=== PATIENT | female | born 1995 | race Two or more races ===

== ENCOUNTER 2016-09-29 10:32 | Emergency (ER) | payer OTHER ==
[2016-09-29 10:39] VITALS: BP 122/84; PULSE 76; TEMP 98.9; BMI 23.8
[2016-09-29] MEDS ORDERED: IBUPROFEN 600 MG TABLET (FP) PO ONE ×2 (11:12→11:14)
--- NOTE | 2016-09-29 11:29 | PDOC ---
History of Present Illness - General Chief Complaint: Sore Throat Stated Complaint: THROAT/TONSIL PAIN Time Seen by Provider: 09/29/16 11:00 History Source: Patient Exam Limitations: No Limitations - History of Present Illness Initial Comments: 09/29/16 11:26 20 yr female with c/o sore throat for 3 days and "bad taste" in her mouth. no fever no chills, no diff swallowing. no medical history or allergies. Occurred: reports: other (3 days) Severity: Yes: mild Past History - Past Medical History Allergies/Adverse Reactions: Allergies Allergy/AdvReac Type Severity Reaction Status Date / Time amoxicillin trihydrate Allergy Rash Verified 09/29/16 10:39 [From Augmentin] potassium clavulanate Allergy Rash Verified 09/29/16 10:39 [From Augmentin] Home Medications: Ambulatory Orders No Home Medications 0 dose .ROUTE UTDICT 11/08/11 Anemia: No - Immunization History Immunization Up to Date: Yes - Psycho/Social/Smoking Cessation Hx Anxiety: No Suicidal Ideation: No Smoking Status: No Smoking History: Never smoked Number of Cigarettes Smoked Daily: 0 Information on smoking cessation initiated: No *Physical Exam - Vital Signs Last Vital Signs Temp Pulse Resp BP Pulse Ox 98.9 F 76 18 122/84 99 09/29/16 10:36 09/29/16 10:36 09/29/16 10:36 09/29/16 10:36 09/29/16 10:36 - Physical Exam General Appearance: Yes: Nourished, Appropriately Dressed HEENT: positive: EOMI, GALDINO, TMs Normal, Tonsillar Exudate (right side, possible tonsilar stone), Tonsillar Erythema Neck: positive: Supple. negative: Lymphadenopathy (R), Lymphadenopathy (L) Respiratory/Chest: positive: Lungs Clear, Normal Breath Sounds Cardiovascular: positive: Regular Rhythm, Regular Rate Gastrointestinal/Abdominal: positive: Normal Bowel Sounds, Soft Musculoskeletal: positive: Normal Inspection Extremity: positive: Normal Capillary Refill, Normal Inspection, Normal Range of Motion Integumentary: positive: Normal Color, Dry, Warm Neurologic: positive: Fully Oriented, Alert, Normal Mood/Affect, Normal Response , Motor Strength 5/5 ED Treatment Course - Medications Given in the ED: ED Medications Discontinued Medications Generic Name Dose Route Start Last Admin Trade Name Freq PRN Reason Stop Dose Admin Ibuprofen 600 mg 09/29/16 11:14 09/29/16 11:20 Motrin - PO 09/29/16 11:15 600 mg ONCE ONE Administration Medical Decision Making - Medical Decision Making 09/29/16 11:29 cc: sore throat, right tonsil stone will check for strep motrin for pain 09/29/16 12:01 *DC/Admit/Observation/Transfer Diagnosis at time of Disposition: Tonsil stone - Discharge Dispostion Disposition: HOME Condition at time of disposition: Good - Referrals Referrals: Rafi Ferrell MD [Staff Physician] - - Patient Instructions Additional Instructions: gargle with warm salt water 4-5 times a day sour lemon candies frequently follow with the ENT doctor for follow up, call today to make appointment
== END 2016-09-29 12:15 | disposition home or self-care (01) ==
LOC: JERFT 10:32
DX: J35.8 Other chronic diseases of tonsils and adenoids (principal)
CPT/HCPCS: 87070; 87430; 99281-25

== ENCOUNTER 2017-09-01 16:23 | Emergency (ER) | payer OTHER ==
[2017-09-01 16:43] VITALS: BP 130/66; PULSE 68; TEMP 98; BMI 26.5
--- NOTE | 2017-09-01 16:44 | PDOC ---
Rapid Medical Evaluation Chief Complaint: Injury Time Seen by Provider: 09/01/17 16:40 Medical Evaluation: Allergies Allergy/AdvReac Type Severity Reaction Status Date / Time amoxicillin trihydrate Allergy Rash Verified 09/01/17 16:39 [From Augmentin] potassium clavulanate Allergy Rash Verified 09/01/17 16:39 [From Augmentin] 09/01/17 16:40 Pt. presents with R ankle pain. States she was walking at work when she twisted her ankle. Finished her shift. LMP 08/19/17 Exam: Mild swelling to the top of the R foot. Pain with movement. Orders: x-ray Pt. to proceed to FT for further evaluation
--- NOTE | 2017-09-01 17:24 | PDOC ---
History of Present Illness - General Chief Complaint: Injury Stated Complaint: ANKLE INJURY Time Seen by Provider: 09/01/17 16:40 History Source: Patient Exam Limitations: No Limitations - History of Present Illness Initial Comments: 09/01/17 17:16 21-year-old woman without significant past medical history presents emergency Department with right ankle pain status post inversion injury this morning while walking. Patient was walking to work wearing platform shoes when she stepped on uneven pavement causing her foot to invert. Patient was immediately ambulatory after injury but as the day progressed the pain got worse and the swelling increased. Patient has not taken anything for pain at this time. Past History - Past Medical History Allergies/Adverse Reactions: Allergies Allergy/AdvReac Type Severity Reaction Status Date / Time amoxicillin trihydrate Allergy Rash Verified 09/01/17 16:39 [From Augmentin] potassium clavulanate Allergy Rash Verified 09/01/17 16:39 [From Augmentin] Home Medications: Ambulatory Orders No Home Medications 0 dose .ROUTE UTDICT 11/08/11 Anemia: No COPD: No DVT: No - Immunization History Immunization Up to Date: Yes - Suicide/Smoking/Psychosocial Hx Smoking Status: No Smoking History: Never smoked Have you smoked in the past 12 months: No Number of Cigarettes Smoked Daily: 0 Information on smoking cessation initiated: No Hx Alcohol Use: No Drug/Substance Use Hx: No Substance Use Type: None Review of Systems - Review of Systems Able to Perform ROS?: Yes Is the patient limited Mosotho proficient: No Constitutional: No: Symptoms Reported HEENTM: No: Symptoms Reported Respiratory: No: Symptoms reported Cardiac (ROS): No: Symptoms Reported ABD/GI: No: Symptoms Reported : No: Symptoms Reported Musculoskeletal: Yes: See HPI Integumentary: No: Symptoms Reported Neurological: No: Symptoms reported *Physical Exam - Vital Signs Last Vital Signs Temp Pulse Resp BP Pulse Ox 98.0 F 68 18 130/66 100 09/01/17 16:39 09/01/17 16:39 09/01/17 16:39 09/01/17 16:39 09/01/17 16:39 - Physical Exam General Appearance: Yes: Appropriately Dressed. No: Apparent Distress Vascular Pulses: Dorsalis-Pedis (R): 2+, Doralis-Pedis (L): 2+ Musculoskeletal: positive: Normal Inspection Extremity: positive: Normal Capillary Refill, Normal Inspection, Normal Range of Motion, Tender (to Palpation over the lateral malleolus. No bony deformity or crepitus present) Integumentary: positive: Normal Color, Dry, Warm Medical Decision Making - Medical Decision Making 09/01/17 17:18 A/P: 21-year-old woman with right ankle pain status post inversion injury this morning at 7:30 AM Full flexion and extension of right ankle against resistance without difficulty 2+ DP pulses bilaterally Tender to palpation over the right lateral malleolus X-rays, reassess X-rays read by me: No fracture or dislocation is present in the foot or ankle. Akbar wrap, crutches discharge home with referral orthopedic surgeon if symptoms are not improved within the next 7 days. *DC/Admit/Observation/Transfer Diagnosis at time of Disposition: Right ankle sprain Qualifiers: Encounter type: initial encounter Involved ligament of ankle: unspecified ligament Qualified Code(s): S93.401A - Sprain of unspecified ligament of right ankle, initial encounter - Discharge Dispostion Disposition: HOME Condition at time of disposition: Stable Decision to Admit order: No - Referrals Referrals: Darwin Higginbotham MD [Primary Care Provider] - Christophe Reyez MD [Staff Physician] - - Patient Instructions Printed Discharge Instructions: DI for Ankle Sprain Additional Instructions: Take Tylenol or Motrin as needed for pain. Follow manufacturers instructions for appropriate dosage. Try not to walk or bear weight on your left ankle as much as possible for the next 3 days. Apply ice for 20 minutes and removed for at least 20 minutes before reapplying the ice. Keep Akbar wrap on your ankle as much as possible to help decrease some of the swelling control pain. Whenever possible keep her foot elevated to decrease swelling to your ankle. You've been given the number for an orthopedist. If symptoms do not resolve within the next 7 days call the orthopedist for further evaluation. Return to emergency department for discoloration of the foot, numbness or tingling to the foot, worsening pain, or any other concerns. Thank you very much for choosing us to provide your emergent healthcare needs. - Post Discharge Activity Forms/Work/School Notes: Back to Work
== END 2017-09-01 17:31 | disposition home or self-care (01) ==
LOC: JERFT 16:23
DX: S93.401A Sprain of unspecified ligament of right ankle, initial encounter (principal); X50.1XXA Overexertion from prolonged static or awkward postures, initial encounter; Y93.01 Activity, walking, marching and hiking; Y92.480 Sidewalk as the place of occurrence of the external cause; Y99.8 Other external cause status
CPT/HCPCS: 73610-TC-RT-FY; 73630-TC-RT-FY; 99281-25

== ENCOUNTER 2018-11-19 10:10 | Emergency (ER) | payer OTHER ==
[2018-11-19 10:31] VITALS: BP 107/69; PULSE 92; TEMP 98.4; BMI 25.6
[2018-11-19] MEDS ORDERED: DEXAMETHASONE LIQUID 0.5 MG/5 ML 240 ML BULK BOTTLE PO ONE (11:01)
[2018-11-19] MEDS ORDERED: DEXAMETHASONE SOD PHOSPHATE 10 MG/1 ML VIAL ONE (11:38)
--- NOTE | 2018-11-19 13:04 | PDOC ---
History of Present Illness - General Chief Complaint: Sore Throat Stated Complaint: SORE THROAT/EARACHE Time Seen by Provider: 11/19/18 10:46 History Source: Patient Exam Limitations: No Limitations Past History - Past Medical History Allergies/Adverse Reactions: Allergies Allergy/AdvReac Type Severity Reaction Status Date / Time amoxicillin trihydrate Allergy Rash Verified 11/19/18 10:15 [From Augmentin] potassium clavulanate Allergy Rash Verified 11/19/18 10:15 [From Augmentin] Home Medications: Ambulatory Orders Clindamycin [Cleocin -] 300 mg PO TID 11/19/18 Anemia: No COPD: No DVT: No - Immunization History Immunization Up to Date: Yes - Suicide/Smoking/Psychosocial Hx Smoking Status: No Smoking History: Never smoked Have you smoked in the past 12 months: No Number of Cigarettes Smoked Daily: 0 Information on smoking cessation initiated: No Hx Alcohol Use: No Drug/Substance Use Hx: No Substance Use Type: None *Physical Exam - Vital Signs Last Vital Signs Temp Pulse Resp BP Pulse Ox 98.4 F 92 H 16 107/69 96 11/19/18 10:16 11/19/18 10:16 11/19/18 10:16 11/19/18 10:16 11/19/18 10:16 - Physical Exam General Appearance: No: Apparent Distress HEENT: positive: Pharyngeal Erythema, Tonsillar Exudate, Other (uvula midline, no evidence of peritonsillar exudates) Respiratory/Chest: positive: Lungs Clear, Normal Breath Sounds. negative: Respiratory Distress Cardiovascular: positive: Regular Rhythm, Regular Rate, S1, S2. negative: Murmur Neurologic: positive: Alert, Normal Mood/Affect ED Treatment Course - Medications Given in the ED: ED Medications Discontinued Medications Generic Name Dose Route Start Last Admin Trade Name Freq PRN Reason Stop Dose Admin Dexamethasone 10 mg 11/19/18 11:01 11/19/18 11:44 Decadron Liquid - PO 11/19/18 11:02 10 mg ONCE ONE Administration Medical Decision Making - Medical Decision Making 23 y/o F hx heart murmur presents with 3 weeks of throat pain. was initially dx with strep throat (per patient, strep test was done); was started on erythromycin x 10 days given allergy to Augmentin. However, states medication only caused vomiting/diarrhea. Was unable to reach PCP again. Went to fast track last week, where a mono spot test was done and it was negative; patient was given shot of steroid and switched to Clindamycin (patient has 3 days left). States the throat was still not feeling better. Still has diarrhea due to meds. Is also doing salt water gargles and taking Motrin. Saw ENT, Dr. Rafi Ferrell, last week, who advised at the time to continue antibiotics. Yesterday, she called urgent care again as not feeling well and was given rx for PO steroids, which patient has not yet started. States she had fever twice; last fever was 4 days ago. Last took Motrin at 8 AM today. +nasal congestion. Denies sob, cp, rash. Rapid strep negative [place] test sent but pending (per lab, results won't be back until the weekend) Rapid strep could be false negative from use of abx Unable to reach ENT, Dr. Ferrell, as on vacation Spoke with ENT, Dr. Bills - states can consider either admitting patient to give IV abx or she can see him in his office tomorrow at 9 AM for second opinion Patient prefers to be off antibiotics for now Will have f/u with Dr. Bills 11/19/18 12:56 *DC/Admit/Observation/Transfer Diagnosis at time of Disposition: Tonsillitis - Discharge Dispostion Disposition: HOME Condition at time of disposition: Stable Decision to Admit order: No - Referrals Referrals: Emile Bills MD [Staff Physician] - 11/20/18 9:00 am - Patient Instructions Printed Discharge Instructions: DI for Pharyngitis/Tonsillopharyngitis -- Adult Additional Instructions: Thank you for choosing [facility]. It was a pleasure taking care of you. Would advise to stop the antibiotics for now Can continue the Motrin 600 mg every 6 hours as needed for pain. Take with food Continue salt water gargles Take probiotics Stay hydrated - at least 2 L of water daily You will be informed regarding mono results. In case, avoid sports to prevent injury to spleen Follow-up with ENT tomorrow at: [address], [place] [address] Return to the Emergency Department if your symptoms worsen or persist or have other concerning symptoms. - Post Discharge Activity
== END 2018-11-19 13:15 | disposition home or self-care (01) ==
LOC: JER 10:10 → JERFT 10:10
DX: J03.90 Acute tonsillitis, unspecified (principal)
CPT/HCPCS: 36415; 86308; 87070; 87880; 99282-25

== ENCOUNTER 2019-05-22 09:49 | Emergency (ER) | payer OTHER ==
[2019-05-22 09:56] VITALS: BP 127/85; PULSE 64; TEMP 97.8; BMI 27.4
--- NOTE | 2019-05-22 11:27 | PDOC ---
History of Present Illness - General Chief Complaint: Vaginal Sxs Stated Complaint: VAGINAL/ANAL ITCHING Time Seen by Provider: 05/22/19 10:49 History Source: Patient Exam Limitations: No Limitations - History of Present Illness Initial Comments: 05/22/19 11:21 Pt is a 23 y/o female who presents to the ED with complaint of vaginal discharge and itching that she has had for the last 3 weeks. She saw her OB/ [facility] and was evaluated on 2 separate visits. She was diagnosed with bacterial vaginosis and yeast vaginitis. The patient states that she continues to have vaginal itching despite being treated. She was treated with MetroGel vaginal as well as an oral tablet. She is also taking a vaginal medication for yeast but cannot remember the name. She was tested for all STDs which were negative. 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 The patient states that she had protected sexual intercourse with use of a condom a few days ago. She also had oral sexual intercourse so she would like to be tested again. The patient denies any burning. Her vaginal discharge is thick and white in color. She denies any foul odor from her vagina. Past History - Past Medical History Allergies/Adverse Reactions: Allergies Allergy/AdvReac Type Severity Reaction Status Date / Time amoxicillin trihydrate Allergy Rash Verified 05/22/19 09:55 [From Augmentin] potassium clavulanate Allergy Rash Verified 05/22/19 09:55 [From Augmentin] Home Medications: Ambulatory Orders Fluconazole [Diflucan] 150 mg PO ONCE #2 tablet 05/22/19 Miconazole Nitrate [Monistat 7] 1 appful VG DAILY 7 Days #7 cream.[email or web address] 05/22/19 Anemia: No COPD: No DVT: No Other medical history: herpes 1 - Reproductive History Is Patient Now?: No (#): 2 Para: 0 Spontaneous : 2 - Immunization History Immunization Up to Date: Yes - Psycho Social/Smoking Cessation Hx Smoking Status: No Smoking History: Never smoked Have you smoked in the past 12 months: No Number of Cigarettes Smoked Daily: 0 Hx Alcohol Use: No Drug/Substance Use Hx: No Substance Use Type: None Review of Systems - Review of Systems Comments:: 05/22/19 11:26 - Review of Systems Able to Perform ROS?: Yes Constitutional: No: Fever, Chills, Loss of Appetite, Night Sweats, Weakness Respiratory: No: Cough, Shortness of Breath, Wheezing, Sputum Production Cardiac (ROS): No: Chest Pain, Chest Tightness, Palpitations, Irregular Heart Beat, Edema ABD/GI: No: Nausea, Vomiting, Abdominal Pain, Diarrhea : No Dysuria, No Hematuria, No Frequency, No Urgency, Thick white vaginal discharge, No vaginal odor, Vaginal itching Musculoskeletal: No: Muscle Pain, Back Pain, Joint Pain, Muscle Weakness, Neck Pain Integumentary: No: Lesions, Rash Neurological: No: Headache, Numbness, Tingling, Weakness, Speech Difficulties *Physical Exam - Vital Signs Last Vital Signs Temp Pulse Resp BP Pulse Ox 97.8 F 64 18 127/85 99 05/22/19 09:52 05/22/19 09:52 05/22/19 09:52 05/22/19 09:52 05/22/19 09:52 - Physical Exam 05/22/19 11:27 - Physical Exam General Appearance: Nourished, Appropriately Dressed, No Distress Neck: Supple, No Lymphadenopathy (R), No Lymphadenopathy (L), No Rigidity, No Decreased range of motion Respiratory/Chest: Lungs Clear, Normal Breath Sounds. No Respiratory Distress, No Accessory Muscle Use Cardiovascular: Regular Rhythm, Regular Rate, S1, S2 Gastrointestinal/Abdominal: Normal Bowel Sounds, Soft. Non-tender, No Guarding , No Rebound, No Rigidity [facility]: There is a thick vaginal discharge that is white and consistent with Margarette. There is no foul odor. No lesions appreciated. No vesicles appreciated. Musculoskeletal: Normal Inspection. No Decreased Range of Motion Extremity: Normal Capillary Refill, Normal Inspection Integumentary: Normal Color, Dry. No Rash Neurologic: criminal research specialist II-XII NML intact, Fully Oriented, Alert, Normal Mood/Affect, Normal Response ED Treatment Course - ADDITIONAL ORDERS Additional order review: 05/22/19 12:52 Laboratory Tests 05/22/19 05/22/19 11:45 12:30 Urine Color Yellow Urine Appearance Clear Urine pH 6.0 Ur Specific [place] 1.024 Urine Protein Negative Urine Glucose (UA) Negative Urine Ketones Negative Urine Blood Negative Urine Nitrite Negative Urine Bilirubin Negative Urine Urobilinogen 0.2 Ur Leukocyte Esterase 2+ H Urine WBC (Auto) 57 Urine RBC (Auto) 3 Urine Casts (Auto) 16 U Epithel Cells (Auto) 1.2 Urine Bacteria (Auto) 19.3 Urine HCG, Qual Negative Medical Decision Making - Medical Decision Making 05/22/19 11:28 Assessment: Patient is a 23-year-old female with vaginal itching and white discharge. Plan: -GC/chlamydia testing ordered -Urinalysis ordered -We will treat for yeast vaginitis with Diflucan and 7 days of Monistat -Will reassess 05/22/19 12:52 The patient has been made aware that her urinalysis is negative for acute UTI. Although there is some bacteria the patient is not having any urinary symptoms. We will treat the patient with both Diflucan and 7 days of Monistat. She will get called with the results of her GC/chlamydia testing. The patient will follow-up with her [facility]. She understands agrees this treatment plan and she is stable for discharge. Discharge - Discharge Information Problems reviewed: Yes Clinical Impression/Diagnosis: Yeast vaginitis Condition: Stable Disposition: HOME - Additional Discharge Information Prescriptions: Fluconazole [Diflucan] 150 mg PO ONCE #2 tablet Miconazole Nitrate [Monistat 7] 1 appful VG DAILY 7 Days #7 cream.[email or web address] - Follow up/Referral Referrals: Darwin Higginbotham MD [Primary Care Provider] - 3 days - Patient Discharge Instructions Patient Printed Discharge Instructions: DI for Vaginal Yeast Infection Additional Instructions: Use the vaginal creams as prescribed and complete the full 7 days. You can take the Diflucan tablet and if your symptoms persist you can take a second 1 in 7 days. Be sure to follow-up with your [facility] for further evaluation and treatment. Once the results of your testing come back, you will receive a call from the hospital regarding the results. You can also call the hospital in 3 to 4 days for results if you do not hear back. - Post Discharge Activity
[2019-05-22 12:07] LABS: EPI CELLS 1.2 /HPF (0-5/HPF); HYALINE CASTS 16 /lpf (0-8); URINE APPEARANCE CLEAR; URINE BACTERIA 19.3 /hpf (NEGATIVE); URINE BILIRUBIN NEGATIVE (NEGATIVE); URINE COLOR YELLOW; URINE GLUCOSE (UA) NEGATIVE (NEGATIVE); URINE KETONE NEGATIVE (NEGATIVE); URINE LEUK ESTERASE 2+ (NEGATIVE); URINE NITRITE NEGATIVE (NEGATIVE); URINE PROTEIN NEGATIVE (NEGATIVE); URINE RBC 3 /hpf (0-4); URINE UROBILINOGEN 0.2 mg/dL (0.2-1.0); URINE WBC 57 /hpf (0-5)
== END 2019-05-22 13:06 | disposition home or self-care (01) ==
LOC: JERFT 09:49
DX: B37.3 Candidiasis of vulva and vagina (principal)
CPT/HCPCS: 36415; 81003; 84703; 87491; 87591; 99283-25

== ENCOUNTER 2020-10-06 13:45 | Emergency (ER) | payer OTHER ==
[2020-10-06 13:49] VITALS: BP 136/89; PULSE 67; TEMP 98.7; BMI 25.6
== END 2020-10-06 14:40 | disposition home or self-care (01) ==
LOC: JERFT 13:45
DX: J03.90 Acute tonsillitis, unspecified (principal)
CPT/HCPCS: 87880; 99283-25

== ENCOUNTER 2020-11-24 10:20 | Emergency (ER) | payer OTHER ==
[2020-11-24 10:38] VITALS: BP 109/74; PULSE 76; TEMP 97.8; BMI 23.3
[2020-11-24] MEDS ORDERED: KETOROLAC TROMETHAMINE 60 MG/2 ML VIAL IM ONE (11:02)
== END 2020-11-24 11:30 | disposition home or self-care (01) ==
LOC: JER 10:20
PROC: 3E023GC Introduction of Other Therapeutic Substance into Muscle, Percutaneous Approach (ICD-10-PCS; principal; 2020-11-24)
DX: S46.919A Strain of unspecified muscle, fascia and tendon at shoulder and upper arm level, unspecified arm, initial encounter (principal); Y99.9 Unspecified external cause status
CPT/HCPCS: 99284-25

== ENCOUNTER 2021-03-22 12:26 | Emergency (ER) | payer OTHER ==
[2021-03-22 13:23] VITALS: BP 119/88; PULSE 90; TEMP 99; BMI 22.8
== END 2021-03-22 15:06 | disposition home or self-care (01) ==
LOC: JER 12:26
DX: U07.1 COVID-19 (principal); S09.90XA Unspecified injury of head, initial encounter; Y04.0XXA Assault by unarmed brawl or fight, initial encounter
CPT/HCPCS: 36415; 84703; 87491; 87591; 87804; 99283-25; C9803; U0003; U0005

== ENCOUNTER 2021-03-28 13:14 | Emergency (ER) | payer OTHER ==
[2021-03-28 13:48] VITALS: BP 106/70; PULSE 90; TEMP 98.7; BMI 23.8
[2021-03-28] MEDS ORDERED: IBUPROFEN 600 MG TABLET (FP) PO ONE ×2 (16:31→16:38)
== END 2021-03-28 17:57 | disposition home or self-care (01) ==
LOC: JER 13:14
DX: R07.89 Other chest pain (principal); J06.9 Acute upper respiratory infection, unspecified
CPT/HCPCS: 71046-TC-FY; 99283-25

== ENCOUNTER 2021-06-24 10:46 | Emergency (ER) | payer OTHER ==
[2021-06-24 11:12] VITALS: BP 109/73; PULSE 80; BMI 21.9
[2021-06-24] MEDS ORDERED: ONDANSETRON *ODT* 4 MG TABLET SL ONE (12:26)
[2021-06-24] MEDS ORDERED: ACETAMINOPHEN 325 MG TABLET (FP) PO ONE (12:26)
[2021-06-24] MEDS ORDERED: ONDANSETRON *ODT* 4 MG TABLET ONE (12:28)
[2021-06-24] MEDS ORDERED: ACETAMINOPHEN 500 MG TABLET (FP) ONE (12:28)
== END 2021-06-24 14:00 | disposition left against medical advice (07) ==
LOC: JERFT 10:46
DX: T74.11XA Adult physical abuse, confirmed, initial encounter (principal)
CPT/HCPCS: 70450-TC; 70486-TC; 72125-TC; 84703; 99284-25; Q0162

== ENCOUNTER 2022-10-30 12:50 | Emergency (ER) | payer OTHER ==
[2022-10-30 13:11] VITALS: BP 116/69; PULSE 74; RESP 16; TEMP 98.8; BMI 25.6
[2022-10-30] MEDS ORDERED: ACETAMINOPHEN 325 MG TABLET (FP) PO ONE (13:59)
[2022-10-30] MEDS ORDERED: LIDOCAINE 5% TOPICAL PATCH TP ONE (14:03)
[2022-10-30] MEDS ORDERED: LIDOCAINE 5% TOPICAL PATCH ONE (14:09)
[2022-10-30] MEDS ORDERED: ACETAMINOPHEN 500 MG TABLET (FP) ONE (14:09)
[2022-10-30] MEDS ORDERED: KETOROLAC TROMETHAMINE 15 MG/ML VIAL IM ONE (14:55)
[2022-10-30] MEDS ORDERED: KETOROLAC TROMETHAMINE 30 MG/1 ML VIAL ONE (14:58)
[2022-10-30] MEDS ORDERED: LIDOCAINE PATCH REMOVAL MC SCH (22:00)
== END 2022-10-30 15:16 | disposition home or self-care (01) ==
LOC: JERFT 12:50
PROC: 3E0233Z Introduction of Anti-inflammatory into Muscle, Percutaneous Approach (ICD-10-PCS; principal; 2022-10-30)
DX: S20.219A Contusion of unspecified front wall of thorax, initial encounter (principal); Y04.0XXA Assault by unarmed brawl or fight, initial encounter
CPT/HCPCS: 71046-TC-FY; 84703; 99284-25

== ENCOUNTER 2022-11-01 02:36 | Emergency (ER) | payer OTHER ==
[2022-11-01 02:50] VITALS: BMI 25.6
[2022-11-01] MEDS ORDERED: ACETAMINOPHEN 500 MG TABLET (FP) PO ONE (03:36)
[2022-11-01] MEDS ORDERED: ACETAMINOPHEN 500 MG TABLET (FP) ONE (03:39)
[2022-11-01 05:03] VITALS: RESP 16; TEMP 98.5
[2022-11-01] MEDS ORDERED: DIPHTH,PERTUSS(ACELL),TET 0.5 ML DISP.SYRIN IM ONE ×2 (05:29→05:41)
[2022-11-01] MEDS ORDERED: LIDOCAINE 5% TOPICAL PATCH TP ONE ×2 (05:55→11:22)
[2022-11-01] MEDS ORDERED: LIDOCAINE 5% TOPICAL PATCH ONE ×2 (06:03→11:27)
[2022-11-01] MEDS ORDERED: KETOROLAC TROMETHAMINE 30 MG/1 ML VIAL IVPUSH ONE (06:12)
[2022-11-01] MEDS ORDERED: KETOROLAC TROMETHAMINE 30 MG/1 ML VIAL ONE (06:22)
[2022-11-01] MEDS ORDERED: KETOROLAC TROMETHAMINE 30 MG/1 ML VIAL IM ONE (06:23)
[2022-11-01 06:32] LABS: BASO % 0.7 % (0-2.0); EOS % 0.7 % (0-4.5); HEMATOCRIT 35.1 % (32.4-45.2); HEMOGLOBIN 11.4 GM/dL (10.7-15.3); LYMPH % 22.7 % (8-40); MCH 27.6 pg (25.7-33.7); MCHC 32.5 g/dl (32.0-36.0); MEAN CELL VOLUME 84.8 fl (80-96); MEAN PLT VOLUME 11.1 fl (7.5-11.1); MONO % 4.6 % (3.8-10.2); NEUT % 71.3 % (42.8-82.8); PLATELET COUNT 174 10^3/uL (134-434); RBC 4.14 M/mm3 (3.60-5.2); RDW 14.4 % (11.6-15.6); WHITE BLOOD COUNT 14.7 K/mm3 (4.0-10.0)
[2022-11-01 07:12] LABS: POTASSIUM 4.4 mmol/L (3.5-5.1)
[2022-11-01 07:14] LABS: CALCIUM 8.6 mg/dL (8.5-10.1)
[2022-11-01 07:15] LABS: ALBUMIN 3.6 g/dl (3.4-5.0)
[2022-11-01 07:18] LABS: CREATININE 0.6 mg/dL (0.55-1.3)
[2022-11-01 07:20] LABS: BILIRUBIN,TOTAL 0.2 mg/dL (0.2-1); TOT PROT 6.4 g/dl (6.4-8.2)
[2022-11-01 11:28] VITALS: BP 125/70; PULSE 55
[2022-11-01] MEDS ORDERED: LIDOCAINE PATCH REMOVAL MC SCH ×2 (22:00)
== END 2022-11-01 11:37 | disposition home or self-care (01) ==
LOC: JER 02:36
PROC: 3E0233Z Introduction of Anti-inflammatory into Muscle, Percutaneous Approach (ICD-10-PCS; principal; 2022-11-01)
PROC: 3E0234Z Introduction of Serum, Toxoid and Vaccine into Muscle, Percutaneous Approach (ICD-10-PCS; 2022-11-01)
DX: R51.9 Headache, unspecified (principal); Y04.0XXA Assault by unarmed brawl or fight, initial encounter
CPT/HCPCS: 36415; 70450-TC; 71045-TC-FY; 72131-TC; 72192-TC; 80053; 84703; 85025; 90471; 90715; 96372; 99285-25

== ENCOUNTER 2023-06-30 11:26 | Emergency (ER) | payer OTHER ==
[2023-06-30 11:35] VITALS: BP 109/77; PULSE 69; RESP 20; TEMP 98.6; BMI 27.4
[2023-06-30] MEDS: LIDOCAINE 4% PATCH TP ONE (12:27)
[2023-06-30] MEDS ORDERED: LIDOCAINE 4% PATCH TP ONE (12:28)
[2023-06-30] MEDS ORDERED: LIDOCAINE PATCH REMOVAL MC SCH (22:00)
== END 2023-06-30 12:52 | disposition home or self-care (01) ==
LOC: JERFT 11:26
PROC: 3E023GC Introduction of Other Therapeutic Substance into Muscle, Percutaneous Approach (ICD-10-PCS; principal; 2023-06-30)
DX: S16.1XXA Strain of muscle, fascia and tendon at neck level, initial encounter (principal); M54.2 Cervicalgia; X50.1XXA Overexertion from prolonged static or awkward postures, initial encounter
CPT/HCPCS: 20552; 84703; 90471; 99283-25